=== PATIENT | male | born 1965 | race Caucasian/White ===

== ENCOUNTER 2018-02-15 12:35 | Emergency (ER) | payer BC ==
[2018-02-15 13:22] VITALS: BP 125/81
--- NOTE | 2018-02-15 15:05 | RAD ---
INDICATION: Vertigo. Dizziness COMPARISON: None TECHNIQUE: Noncontrast axial source images were acquired from the skull base to the vertex. FINDINGS: Ventricles/sulci: The ventricles and cisterns are normal in size and configuration for age. Brain parenchyma: There is no focal parenchymal finding, evidence of intracranial mass, or intracranial mass effect. Intracranial hemorrhage:None. Extra-axial spaces: There are no abnormal extra axial fluid collections or evidence of extra-axial mass. Calvarium: There is no calvarial fracture or other calvarial abnormality. Scalp: There is no evidence of scalp or extracalvarial soft tissue abnormality. Paranasal sinuses/mastoid: The paranasal sinuses and mastoid air cells are clear. Other: None. IMPRESSION: NEGATIVE EXAMINATION
--- NOTE | 2018-02-15 15:20 | UC ---
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 Pt states x 1 month has been have vertigo sx in the morning. Pt states the sx improves as day progresses. Pt states over past 5 days sx have been more intense. Pt notes on Sunday was particularly bad and took "all day" to resolve. Pt states feels in morning in bed when turns head side to side. Pt also reports mild CALLAWAY. no nasal congestion, sore throat, ear pain. No fever, chills, rash. No nausea, vomiting. Pt ce CP, sob. No ext weakness, paresthesia. No changes in strength. Pt had a neg cardiac w/u and stress test within last month. Pt states he has had vertigo in the past, but previously sx resolve after 3-4 days. Pt has taken meclizine but makes him drowsy so take infrequently. Pt presents to inquire about eply manuever as he investigated online. Pt also asking about potentation chronic carbon monoxide poisoining as he knows he need work on his car exhaust. Pt denies changes or clear correlation of sx to time in car. No other with sx Pt's medications reviewed this visit - History of Current Complaint Chief Complaint: UCDizziness Stated Complaint: DIZZINESS Time Seen by Provider: 02/15/18 14:31 Hx Obtained From: Patient Onset/Duration: Gradual Onset, Lasting Minutes, Lasting Weeks Timing: Intermittent Episodes Lasting: Onset Severity: Mild Current Severity: None Pain Intensity: 3 - callaway - Allergy/Home Medications Allergies/Adverse Reactions: Allergies Allergy/AdvReac Type Severity Reaction Status Date / Time No Known Allergies Allergy Verified 02/15/18 13:11 Home Medications: Home Medications Rivaroxaban TAB(*) [Xarelto 10 mg (*)] 10 mg PO DAILY 02/15/18 [History Confirmed 02/15/18] PMH/Surg Hx/FS Hx/Imm Hx Previously Healthy: Yes - Factor V leiden - PE/DVT - Surgical History Surgical History: Yes Surgery Procedure, Year, and Place: tonsilectomy. rectal prolapse. - Family History Known Family History: Positive: Other - denies FMH abscess - Social History Occupation: Employed Full-time Lives: With Family Alcohol Use: Occasionally Substance Use Type: None Smoking Status (MU): Never Smoked Tobacco Review of Systems Constitutional: Negative Eyes: Negative Neurological: Other - vertigo All Other Systems Reviewed And Are Negative: Yes Physical Exam Triage Information Reviewed: Yes Appearance: Well-Appearing, No Pain Distress, Well-Nourished Vital Signs: Initial Vital Signs Temp 97.5 F 02/15/18 13:12 Pulse 59 02/15/18 13:12 Resp 18 02/15/18 13:12 BP 125/81 02/15/18 13:12 Pulse Ox 100 02/15/18 13:12 Eyes: Positive: Conjunctiva Clear, Conjunctiva Inflamed, Discharge, Other: - 3 beat horizontal nystagmus to right - mild symptomatic ENT: Positive: Hearing grossly normal, Pharynx normal, TMs normal. Negative: Nasal congestion Dental Exam: Normal Neck exam: Normal Neck: Positive: Supple, Nontender, No Lymphadenopathy Respiratory Exam: Normal Respiratory: Positive: Chest non-tender, Lungs clear, Normal breath sounds, No respiratory distress, No accessory muscle use Cardiovascular Exam: Normal Cardiovascular: Positive: RRR, No Murmur, Other: - No bruit b/l Abdominal Exam: Normal Abdomen Description: Positive: Nontender, No Organomegaly, Soft Bowel Sounds: Positive: Present Musculoskeletal Exam: Normal Musculoskeletal: Positive: Strength Intact, ROM Intact Neurological Exam: Normal Neurological: Positive: Alert Psychological Exam: Normal Psychological: Positive: Normal Response To Family Skin Exam: Normal Course/Dx - Course Course Of Treatment: Pt with concerns for ongoing episodes of vertigo. Pt with h/o similar but htis is more prolonged . Pt also with mild callaway. Non concerning exam or VS. Pt with extinguishing nystagmus to right, horizontal. Suspect sx are BPPV - will check CT head given CALLAWAY and xarelto. d/w regarding carbon monoxide - unlikely as sx in am, not correlated with CO. Pt had prolonged wait at so checking levels at this time unlikely diagnostic. Recommend pt have car checked for CO. If CT neg, will discharge home - pt given handout one eply pinky. referral to ENT for ongoing sx, humidify air in bedroom. strict return precuations discussed. Pt comfortable and in agreement with plan - Differential Dx - Multi-Symptom Provider Diagnoses: vertigo Discharge - Sign-Out/Discharge Documenting (check all that apply): Discharge - Discharge Plan Condition: Stable Disposition: HOME Patient Education Materials: Vertigo (ED), Benign Paroxysmal Positional Vertigo (ED) Referrals: Sher Cox MD [Medical Doctor] - If Needed Hilda Mae PA [Primary Care Provider] - Additional Instructions: - stay well hydrated. Drink plenty of non-caffinated, non-alcoholic beverages - okay to take Meclizine, Bonine or Dramamine for your symptoms - humidify the air in the room where you sleep - if you do not have a humidifier - boil water, hot steam shower, or use a saline nasal spray at bedtime - okay to try the maneuvers as instructed - If your symptoms persist, okay to schedule a follow-up appointment with the ENT provider as referred If you have increased headache, vomiting, fevers, vision changes or ANY Other concerns it is recommended you go directly to the emergency department - Billing Disposition and Condition Condition: STABLE Disposition: HOME
== END 2018-02-15 15:27 | disposition home or self-care (01) ==
LOC: UCCORT 12:35
DX: R42 Dizziness and giddiness (principal); R51 Headache; Z79.01 Long term (current) use of anticoagulants; Z86.711 Personal history of pulmonary embolism; Z86.718 Personal history of other venous thrombosis and embolism
CPT/HCPCS: 70450; 99211; G0463

== ENCOUNTER 2019-05-22 08:18 | Emergency (ER) | payer BC ==
[2019-05-22 08:41] VITALS: BP 114/69
--- NOTE | 2019-05-22 08:46 | UC ---
Eye Complaint HPI - HPI Summary HPI Summary: 54 year old male with eye concern. C/o R eye redness since yesterday. 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 Denies any itchiness or burning or drainage from his eyes. No vision loss but the redness in the eye has concerned the patient. [ End ] - History of Current Complaint Chief Complaint: UCEye Stated Complaint: EYE CONCERN Time Seen by Provider: 05/22/19 08:44 Hx Obtained From: Patient Onset/Duration: Gradual Onset Severity Initially: Mild Severity Currently: Mild Pain Intensity: 0 - Allergies/Home Medications Allergies/Adverse Reactions: Allergies Allergy/AdvReac Type Severity Reaction Status Date / Time No Known Allergies Allergy Verified 02/15/18 13:11 PMH/Surg Hx/FS Hx/Imm Hx - Additional Past Medical History Additional PMH: (+) factor V leiden with history of DVT and PE Previously Healthy: Yes - Surgical History Surgical History: Yes Surgery Procedure, Year, and Place: tonsilectomy. rectal prolapse. - Family History Known Family History: Positive: Blood Disorder - Factor V Leiden, Other - denies FMH abscess - Social History Occupation: Employed Full-time Alcohol Use: Occasionally Substance Use Type: None Smoking Status (MU): Never Smoked Tobacco Review of Systems All Other Systems Reviewed And Are Negative: Yes Eyes: Positive: Eye Redness Is Patient Immunocompromised?: No Physical Exam Triage Information Reviewed: Yes Appearance: Well-Appearing, No Pain Distress, Well-Nourished Vital Signs: Initial Vital Signs Temp 97.6 F 05/22/19 08:30 Pulse 59 05/22/19 08:30 Resp 15 05/22/19 08:30 BP 114/69 05/22/19 08:30 Pulse Ox 100 05/22/19 08:30 Vital Signs Reviewed: Yes Eye Exam: Normal Eyes: Positive: Other: - minimal right eye with mild injected lateral aspect of the sclera . no redness of conjunctiva. Negative: Conjunctiva Clear, Conjunctiva Inflamed, Discharge ENT Exam: Normal Dental Exam: Normal Neck exam: Normal Neck: Positive: 1 Respiratory Exam: Normal Cardiovascular Exam: Normal Musculoskeletal Exam: Normal Neurological Exam: Normal Psychological Exam: Normal Skin Exam: Normal Eye Complaint Course/Dx - Course Course Of Treatment: With exposure to pink eye he is concerned and will be offered script but not advised to start med unless develops redness in the eye that worsens and purulent discharge in the eye. He will monitor sX AND if need can start antibiotics and if any concerns RTO . He is aware of SE of abx. No vision changes at this time. - Differential Dx/Diagnosis Differential Diagnosis/HQI/PQRI: Conjunctivitis, Uveitis Provider Diagnosis: Redness of eye, right Discharge - Sign-Out/Discharge Documenting (check all that apply): Patient Departure All imaging exams completed and their final reports reviewed: No Studies - Discharge Plan Condition: Good Disposition: HOME Prescriptions: Polymyx/Trimethoprim OPTH* [Polytrim OPHTH*] 1 drop RIGHT EYE Q3H 5 Days #1 btl Patient Education Materials: Conjunctivitis (ED) Referrals: Hilda Mae PA [Primary Care Provider] - 4 Days Additional Instructions: Based on your exposure to pink eye you are being a script for antibiotics and if you develop green purulent discharge in the eye then start the antibiotic. At this time you are advised to wait on using the medication until you develop any concerning symptoms for bacterial pink eye - Billing Disposition and Condition Condition: GOOD Disposition: Home
== END 2019-05-22 09:06 | disposition home or self-care (01) ==
LOC: UCCORT 08:18
DX: H57.9 Unspecified disorder of eye and adnexa (principal)
CPT/HCPCS: 99212; G0463